=== PATIENT | male | born 1930 | race Caucasian/White ===

== ENCOUNTER 2017-09-24 09:34 | Emergency (ER) | payer MEDICARE, OTHER ==
--- NOTE | 2017-09-24 09:43 | ED Physician Documentation ---
PD HPI HEAD INJURY - Stated complaint Stated Complaint: GLF/HEAD INJURY/LOW BP - History obtained from History obtained from: Patient, Family ( and daughter) - History of Present Illness Mechanism of head injury: Fell Where head injury occurred: Home (he had felt okay getting up from bed, helped him to the shower and he had startd shower. went to get something in other room and heard a thump. Found patient in shower, crumpled into corner, head against the wall. He was looking pale. Not talking clearly. EMS called as and daughter could not lift him out of the shower. EMS found patient BP low at 80s systolic. He was talkative at that time though.) Timing - onset: Today (abruptly in the shower. says he seemed okay earlier when he got up. She states he ongoingly does not drink much fluids.) Location of injury: Left Symptoms worsen with: Palpation Contributing factors: No: Anticoagulated, Intoxicated Similar symptoms before: Has not had sx before Review of Systems Constitutional: denies: Fever, Chills, Myalgias Nose: denies: Rhinorrhea / runny nose, Congestion Throat: denies: Sore throat Cardiac: denies: Chest pain / pressure, Palpitations Respiratory: denies: Dyspnea, Cough GI: denies: Abdominal Pain, Nausea, Vomiting PD PAST MEDICAL HISTORY - Past Medical History Cardiovascular: None Respiratory: None Neuro: Dementia Endocrine/Autoimmune: None GI: None 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 He gestures to left side of head when asked about injury area. ) - HEENT HEENT: PERRL, Ears normal, Moist mucous membranes, Pharynx benign - Neck Neck: Supple, no meningeal sign, No bony TTP, No adenopathy - Cardiac Cardiac: RRR, No murmur - Respiratory Respiratory: Clear bilaterally Results - Vitals Vitals: Vital Signs - 24 hr 09/24/17 09/24/1709/24/18 09:38 10:17 11:45 Temperature 36.3 C L 36.7 C Heart Rate 80 69 72 Respiratory 16 19 18 Rate Blood Pressure 126/65 121/65 107/58 L O2 Saturation 98 97 97 Oxygen O2 Source Room air - EKG (time done) 10:06 Rate: Rate (enter#) (70) Rhythm: NSR [place]: Normal Intervals: Normal [place] QRS: Normal Ischemia: Normal ST segments. No: ST elevation c/w ischemia, ST depression Computer interpretation: Agree with computer - Labs Labs: Laboratory Tests 09/24/17 09/24/17 09/24/17 10:02 10:02 10:02 WBC 7.4 RBC 4.19 L Hgb 14.2 Hct 40.5 L MCV 96.6 H MCH 34.0 H MCHC 35.2 RDW 13.6 Plt Count 197 MPV 7.1 L Neut # (Auto) 4.8 Lymph # (Auto) 1.5 [place] # (Auto) 0.9 Eos # (Auto) 0.1 Baso # (Auto) 0.1 Absolute Nucleated RBC 0.00 Nucleated RBC % 0.0 Sodium 131 L Potassium 4.4 Chloride 96 L Carbon Dioxide 27 Anion Gap 8.0 BUN 17 Creatinine 1.8 H Estimated GFR (MDRD) 36 L Glucose 117 H Calcium 8.5 Magnesium 2.0 Total Bilirubin 1.1 H AST 18 ALT 14 Alkaline Phosphatase 46 Troponin I < 0.04 Total Protein 6.7 Albumin 3.8 Globulin 2.9 Albumin/Globulin Ratio 1.3 Triglycerides Cholesterol LDL Cholesterol, Calc VLDL Cholesterol HDL Cholesterol LDL/HDL Ratio Cholesterol/HDL Ratio Lipase 27 PSA Screen 09/24/17 09/24/17 10:02 10:02 WBC RBC Hgb Hct MCV MCH MCHC RDW Plt Count MPV Neut # (Auto) Lymph # (Auto) [place] # (Auto) Eos # (Auto) Baso # (Auto) Absolute Nucleated RBC Nucleated RBC % Sodium Potassium Chloride Carbon Dioxide Anion Gap BUN Creatinine Estimated GFR (MDRD) Glucose Calcium Magnesium Total Bilirubin AST ALT Alkaline Phosphatase Troponin I Total Protein Albumin Globulin Albumin/Globulin Ratio Triglycerides 143 Cholesterol 200 H LDL Cholesterol, Calc 129 VLDL Cholesterol 29 HDL Cholesterol 42 L LDL/HDL Ratio 3.1 Cholesterol/HDL Ratio 4.8 Lipase PSA Screen 13.700 H - Rads (name of study) head CT Radiology: Prelim report reviewed (no acute process; no ICH. ) PD MEDICAL DECISION MAKING - ED course Complexity details: considered differential (EMS reported low BP in shower, improved enroute and he feels okay here. Has been underhydrating. No other acute symptoms. ), d/w patient, d/w family - Sepsis Event Vital Signs: Vital Signs - 24 hr 09/24/17 09/24/17 09/24/17 09:38 10:17 11:45 Temperature 36.3 C L 36.7 C Heart Rate 80 69 72 Respiratory 16 19 18 Rate Blood Pressure 126/65 121/65 107/58 L O2 Saturation 98 97 97 Oxygen O2 Source Room air Departure - Departure Disposition: 01 Home, Self Care Clinical Impression: Transient hypotension, Fall in (into) shower or empty bathtub, initial encounter Syncope Qualifiers: Syncope type: unspecified Qualified Code(s): R55 - Syncope and collapse Condition: Stable Record reviewed to determine appropriate education?: Yes Instructions: ED Fainting Unkn Cause Follow-Up: Robin Gomez MD [Primary Care Provider] - Comments: There are no obvious signs of significant problems related to the episode today. He may have had a transient drop in blood pressure related to under hydration concurrent with being up in the shower. Drink adequate amounts of fluids (nonalcoholic and non-caffeine). Continue usual medications. Follow-up with your primary care. Discharge Date/Time: 09/24/17 11:51
[2017-09-24] MEDS ORDERED: SODIUM CHLORIDE 0.9% 1,000 ML IV ONE (09:56)
[2017-09-24 10:09] LABS: BASOPHILS # (AUTO) 0.1 10^3/uL (0.0-0.1); EOSINOPHILS # (AUTO) 0.1 10^3/uL (0.0-0.7); EOSINOPHILS % (AUTO) 1.5 %; HGB - HEMOGLOBIN 14.2 g/dL (14.0-18.0); LYMPHOCYTES # (AUTO) 1.5 10^3/uL (1.5-3.5); LYMPHOCYTES % (AUTO) 20.5 %; MEAN CORPUSCULAR HGB CONC 35.2 g/dL (32.0-36.0); MEAN CORPUSCULAR VOLUME 96.6 fL (80.0-94.0); MEAN PLATELET VOLUME 7.1 fL (7.4-11.4); MONOCYTES # (AUTO) 0.9 10^3/uL (0.0-1.0); MONOCYTES % (AUTO) 11.8 %; NEUTROPHILS # (AUTO) 4.8 10^3/uL (1.5-6.6); NEUTROPHILS % (AUTO) 65.2 %; PLT - PLATELET COUNT 197 10^3/uL (130-450); RED BLOOD COUNT 4.19 10^6/uL (4.70-6.10); RED CELL DISTRIBUTION WIDTH 13.6 % (12.0-15.0); WHITE BLOOD COUNT 7.4 x10^3/uL (4.8-10.8)
[2017-09-24 10:23] LABS: ALBUMIN 3.8 g/dL (3.2-5.5); ALBUMIN/GLOBULIN RATIO 1.3 (1.0-2.2); BILIRUBIN,TOTAL 1.1 mg/dL (0.2-1.0); CALCIUM 8.5 mg/dL (8.5-10.3); CREATININE 1.8 mg/dL (0.6-1.2); TOTAL PROTEIN 6.7 g/dL (6.7-8.2)
--- NOTE | 2017-09-24 10:37 | CT Report ---
Procedure Date: 09/24/2017 Accession Number: [id number] / [id number] Procedure: CT - Head W/O CPT Code: FULL RESULT: EXAM: CT HEAD EXAM DATE: 09/24/2017 10:16 AM. CLINICAL HISTORY: Fell in shower and may have struck head; LOC brief. COMPARISON: None. TECHNIQUE: Multiaxial CT images were obtained from the foramen magnum to the vertex. Reformats: Sagittal and coronal. IV contrast: None. In accordance with CT protocol optimization, one or more of the following dose reduction techniques were utilized for this exam: automated exposure control, adjustment of mA and/or KV based on patient size, or use of iterative reconstructive technique. FINDINGS: Parenchyma: No intraparenchymal hemorrhage. No evidence of mass, midline shift, or CT findings of acute infarction. Grullon-white differentiation is distinct. Diffuse chronic microangiopathic white matter changes are evident. Extraaxial Spaces: Normal for age. No subdural or epidural collections identified. Ventricles: The ventricles and cortical sulci are enlarged, consistent with age-related tissue loss. Sinuses and orbits: Imaged paranasal sinuses, orbits, and mastoids show no significant abnormality. Bones: No evidence of fracture or calvarial defect. Other: None. IMPRESSION: Generalized age-related changes without evidence of acute intracranial abnormality. RADIA
[2017-09-24 10:39] LABS: CHOL/HDL RATIO 4.8 (<5.0); CHOLESTEROL 200 mg/dL; HDL CHOLESTEROL 42 mg/dL; LDL CHOLESTEROL,CALCULATED 129 mg/dL; LDL/HDL RATIO 3.1 (<3.6); VLDL CHOLESTEROL 29 mg/dL
[2017-09-24 11:48] VITALS: BP 107/58
== END 2017-09-24 11:51 | disposition home or self-care (01) ==
LOC: ED 09:34
DX: I95.9 Hypotension, unspecified (principal); R55 Syncope and collapse; F03.90 Unspecified dementia, unspecified severity, without behavioral disturbance, psychotic disturbance, mood disturbance, and anxiety; Z91.81 History of falling
CPT/HCPCS: 36415; 70450; 80053; 80061; 83690; 83735; 84484; 85025; 93005; 96360; 99283; 99284; G0103; 83721; 84153

== ENCOUNTER 2018-03-01 17:08 | Outpatient (CLI) | payer MEDICARE, OTHER | END 2018-03-01 17:09 | disposition home or self-care (01) | LOC: EMS 17:08 | PROVIDERS: ATTEND Surgery | DX: R55 Syncope and collapse (principal); R15.9 Full incontinence of feces; I95.9 Hypotension, unspecified; Z95.1 Presence of aortocoronary bypass graft; F03.90 Unspecified dementia, unspecified severity, without behavioral disturbance, psychotic disturbance, mood disturbance, and anxiety | CPT/HCPCS: A0425; A0427 ==

== ENCOUNTER 2018-03-01 17:18 | Emergency (ER) | payer MEDICARE, OTHER ==
--- NOTE | 2018-03-01 17:56 | ED Physician Documentation ---
PD HPI SYNCOPE - Stated complaint Stated Complaint: NEAR SYNCOPE - Chief complaint Chief Complaint: Neuro - History obtained from History obtained from: Patient - History of Present Illness Witnessed: Witnessed (by his family members.) Timing - onset: How many minutes ago (about 30 minutes [facility], he was going out to get the mail, which is hundred yards or more. He does it regularly. He was coming back and had abrupt urge for BM, and had large dairrheal movement in his pants as did not make it back to bathroom in time. He got lightheaded with it. He then had another watery BM in his pants and about fainted as he tried to get up. Family says was brown stool without blood nor melena. They cleaned up the patient and he remained feeling weak. No chest pain nor palpitations. EMS was called and found him awake and alert, but hypotensive, worse with standing. Improved with IV fluids enroute.) Contributing factors: Decreased PO intake (family says chronic underhydration, and he only has coffee and couple beers daily for fluid.), Noxious stimulae (he had cramping large diarrheal BM just prior to the onset of the lightheadedness.). No: Recent med change Injury occurred: No: Fell, Head injury, Neck injury Treatment [facility]: Fluids Similar symptoms before: Has not had sx before Recently seen: Not recently seen Review of Systems Constitutional: denies: Fever Nose: denies: Rhinorrhea / runny nose, Congestion Throat: denies: Sore throat Cardiac: denies: Chest pain / pressure, Palpitations Respiratory: denies: Cough GI: reports: Abdominal Pain, Diarrhea (3 episodes just the past 30 mintues [facility], without blood nor melena.). denies: Abdominal Swelling, Nausea, Vomiting, Constipation, Bloody / black stool Skin: denies: Rash, Lesions Musculoskeletal: denies: Neck pain, Back pain Neurologic: reports: Generalized weakness, Near syncope. 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 - Past Surgical History Past Surgical History: Yes General: Cholecystectomy, Appendectomy Cardiovascular: CABG HEENT: Tonsil/Adenoidectomy - Present Medications Home Medications: Ambulatory Orders Medication Instructions Recorded Confirmed Metoprolol Tartrate 0 mg 09/24/17 Diphenoxylate/Atropine [Lomotil] 1 each PO QID PRN #12 tablet 03/01/18 - Allergies Allergies/Adverse Reactions: Allergies Allergy/AdvReac Type Severity Reaction Status Date / Time No Known Drug Allergies Allergy Verified 09/24/17 09:43 - Social History Does the pt smoke?: No Smoking Status: Never smoker Does the pt drink ETOH?: Yes Does the pt have substance abuse?: No PD ED PE NORMAL - Vitals Vital signs reviewed: Yes - General General: Alert and oriented X 3, No acute distress, Well developed/nourished - HEENT HEENT: Atraumatic, Ears normal, Pharynx benign. No: Moist mucous membranes - Neck Neck: Supple, no meningeal sign, No adenopathy, No JVD - Cardiac Cardiac: RRR, No murmur - Respiratory Respiratory: Clear bilaterally - Abdomen Abdomen: Normal bowel sounds, Soft, Non tender, Non distended, No organomegaly - Derm Derm: Normal color, Warm and dry - Extremities Extremities: No tenderness to palpate, Normal ROM s pain, No edema, No calf tenderness / cord - Neuro Neuro: Alert and oriented X 3, lubricator granulator 2-12 intact, No motor deficit, No sensory deficit, Normal speech Eye Opening: Spontaneous Motor: Obeys Commands Verbal: Oriented GCS Score: 15 Results - Vitals Vitals: Oxygen O2 Source Room air - EKG (time done) 17:33 Rate: Rate (enter#) (89) Rhythm: NSR [place]: Normal Intervals: Normal [place] QRS: Normal Ischemia: Normal ST segments. No: ST elevation c/w ischemia, ST depression - Labs Labs: Laboratory Tests 03/01/18 03/01/18 03/01/18 18:40 18:40 18:40 WBC 7.9 RBC 3.91 L Hgb 13.0 L Hct 38.1 L MCV 97.5 H MCH 33.2 H MCHC 34.0 RDW 13.5 Plt Count 179 MPV 6.6 L Neut # (Auto) 5.8 Lymph # (Auto) 1.0 L [place] # (Auto) 1.1 H Eos # (Auto) 0.0 Baso # (Auto) 0.1 Absolute Nucleated RBC 0.00 Nucleated RBC % 0.0 Sodium 126 L Potassium 4.5 Chloride 95 L Carbon Dioxide 23 Anion Gap 8.0 BUN 17 Creatinine 1.8 H Estimated GFR (MDRD) 36 L Glucose 121 H Calcium 7.9 L Magnesium 1.9 Total Bilirubin 1.0 AST 71 H ALT 95 H Alkaline Phosphatase 71 Troponin I < 0.04 Total Protein 6.2 L Albumin 3.6 Globulin 2.6 Albumin/Globulin Ratio 1.4 Lipase 44 PD MEDICAL DECISION MAKING - ED course Complexity details: considered differential (he had the near syncope after having 3 bouts of acute diarrhea. Familys says chronically underhydrated. He f eels good with IV fluids. I don't feel he needs further CV workup. ), d/w patient Departure - Departure Disposition: Home, Self Care Clinical Impression: Acute diarrhea, Transient hypotension, Near syncope, Dehydration Condition: Stable Record reviewed to determine appropriate education?: Yes Instructions: ED Dehydration, ED Near Syncope Unkn Follow-Up: Robin Gomez MD [Primary Care Provider] - Prescriptions: Diphenoxylate/Atropine [Lomotil] 1 each PO QID PRN #12 tablet PRN Reason: Diarrhea Comments: Drink lots of fluids. Use Lomotil if needed for diarrhea. If you have diarrhea persisting more than a couple of days, then obtain a sample and bring it into your primary care for culture. It sounds like with your under hydration chronically, the added diarrhea today led to the drop in blood pressure and the near fainting. He seemed to be doing better now with IV fluids. No signs of more significant cause at this time. Follow-up with your primary care if further near fainting episodes. Discharge Date/Time: 03/01/18 20:57
[2018-03-01] MEDS ORDERED: SODIUM CHLORIDE 0.9% 1,000 ML IV ONE ×2 (18:32→18:33)
[2018-03-01] MEDS ORDERED: DIPHENOX/ATROPINE 2.5/0.025 MG TABLET PO STA (18:33)
[2018-03-01 19:05] LABS: BASOPHILS # (AUTO) 0.1 10^3/uL (0.0-0.1); BASOPHILS % (AUTO) 0.7 %; EOSINOPHILS % (AUTO) 0.5 %; LYMPHOCYTES % (AUTO) 12.5 %; MEAN CORPUSCULAR HEMOGLOBIN 33.2 pg (27.0-31.0); MEAN CORPUSCULAR VOLUME 97.5 fL (80.0-94.0); MEAN PLATELET VOLUME 6.6 fL (7.4-11.4); MONOCYTES # (AUTO) 1.1 10^3/uL (0.0-1.0); MONOCYTES % (AUTO) 13.3 %; NEUTROPHILS # (AUTO) 5.8 10^3/uL (1.5-6.6); PLT - PLATELET COUNT 179 10^3/uL (130-450); RED BLOOD COUNT 3.91 10^6/uL (4.70-6.10); RED CELL DISTRIBUTION WIDTH 13.5 % (12.0-15.0); WHITE BLOOD COUNT 7.9 x10^3/uL (4.8-10.8)
[2018-03-01 19:16] LABS: ALBUMIN 3.6 g/dL (3.2-5.5); ALBUMIN/GLOBULIN RATIO 1.4 (1.0-2.2); CREATININE 1.8 mg/dL (0.6-1.2); MAGNESIUM 1.9 mg/dL (1.7-2.8); TOTAL PROTEIN 6.2 g/dL (6.7-8.2)
[2018-03-01 19:28] LABS: CALCIUM 7.9 mg/dL (8.5-10.3)
[2018-03-01 20:09] VITALS: BP 124/68
== END 2018-03-01 20:57 | disposition home or self-care (01) ==
LOC: EDUNIT# → ED 17:18
DX: R19.7 Diarrhea, unspecified (principal); I95.9 Hypotension, unspecified; R55 Syncope and collapse; E86.0 Dehydration; F03.90 Unspecified dementia, unspecified severity, without behavioral disturbance, psychotic disturbance, mood disturbance, and anxiety; Z95.1 Presence of aortocoronary bypass graft
CPT/HCPCS: 36415; 80053; 83690; 83735; 84484; 85025; 93005; 96360; 99283; 99284; A9270

== ENCOUNTER 2019-11-26 13:31 | Outpatient (CLI) | payer MEDICARE, OTHER ==
--- NOTE | 2019-11-26 15:18 | XRAY Report ---
PROCEDURE: Chest 2 View X-Ray INDICATIONS: COUGH,PEDAL EDEMA,CKD STAGE 3 TECHNIQUE: 2 view(s) of the chest. COMPARISON: Comparison study 11/04/2013. FINDINGS: Surgical changes and devices: Sternotomy wires, prior CABG.. Lungs and pleura: No pleural effusions or pneumothorax. Lungs are clear. Mediastinum: Mediastinal contours are normal. Heart size is normal. Mild focal eventration right he midiaphragm. Bones and chest wall: No suspicious bony abnormalities. Soft tissues appear unremarkable. IMPRESSION: Source of cough is not seen. Heart size normal. Prior CABG. 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 Reviewed by: Joaquín Dolan MD on 11/26/2019 3:17 PM PDT Approved by: Joaquín Dolan MD on 11/26/2019 3:17 PM PDT Station ID: [id number]
== END 2019-11-26 13:32 | disposition home or self-care (01) ==
LOC: DI 13:31
PROVIDERS: ATTEND Family Medicine
DX: R05 Cough (principal); R60.0 Localized edema; N18.30 Chronic kidney disease, stage 3 unspecified
CPT/HCPCS: 71046

== ENCOUNTER 2019-12-04 08:00 | Outpatient (CLI) | payer MEDICARE, OTHER ==
[2019-12-04 18:41] LABS: BASOPHILS # (AUTO) 0.1 10^3/uL (0.0-0.1); BASOPHILS % (AUTO) 0.9 %; EOSINOPHILS # (AUTO) 0.3 10^3/uL (0.0-0.7); EOSINOPHILS % (AUTO) 3.5 %; HGB - HEMOGLOBIN 14.6 g/dL (14.0-18.0); LYMPHOCYTES # (AUTO) 2.8 10^3/uL (1.5-3.5); LYMPHOCYTES % (AUTO) 34.8 %; MEAN CORPUSCULAR HEMOGLOBIN 33.6 pg (27.0-31.0); MEAN CORPUSCULAR HGB CONC 34.1 g/dL (32.0-36.0); MEAN CORPUSCULAR VOLUME 98.6 fL (80.0-94.0); MONOCYTES % (AUTO) 12.3 %; NEUTROPHILS # (AUTO) 3.9 10^3/uL (1.5-6.6); RED BLOOD COUNT 4.34 10^6/uL (4.70-6.10); RED CELL DISTRIBUTION WIDTH 12.6 % (12.0-15.0)
[2019-12-04 19:10] LABS: ALBUMIN 4.3 g/dL (3.2-5.5); ALBUMIN/GLOBULIN RATIO 1.4 (1.0-2.2); BILIRUBIN,TOTAL 0.8 mg/dL (0.2-1.0); CALCIUM 9.1 mg/dL (8.5-10.3); CREATININE 2.2 mg/dL (0.6-1.2); TOTAL PROTEIN 7.3 g/dL (6.7-8.2)
[2019-12-04 19:34] LABS: PLATELET MORPHOLOGY PLATELET CLUMPING (NORMAL); RBC MORPHOLOGY (MULTIPLE) NORMAL APPEARANCE (NORMAL)
== END 2019-12-04 23:59 | disposition home or self-care (01) ==
LOC: LAB.WCP 08:00
PROVIDERS: ATTEND Family Medicine
DX: N18.30 Chronic kidney disease, stage 3 unspecified (principal); R05 Cough; R60.0 Localized edema
CPT/HCPCS: 36415; 80053; 84443; 85025